=== PATIENT | female | born 1945 | race Caucasian/White ===

== ENCOUNTER 2023-11-02 09:01 | Observation (INO) | payer OTHER ==
[2023-11-02 10:13] LABS: BASO % 0.8 % (0-2.0); EOS % 4.3 % (0-4.5); HEMATOCRIT 44.3 % (32.4-45.2); HEMOGLOBIN 14.6 GM/dL (10.7-15.3); LYMPH % 11.2 % (8-40); MCH 29.5 pg (25.7-33.7); MCHC 33.1 g/dl (32.0-36.0); MEAN CELL VOLUME 89.1 fl (80-96); MEAN PLT VOLUME 8.3 fl (7.5-11.1); NEUT % 78.7 % (42.8-82.8); PLATELET COUNT 487 10^3/uL (134-434); RBC 4.97 M/mm3 (3.60-5.2); RDW 15.2 % (11.6-15.6); WHITE BLOOD COUNT 9.4 K/mm3 (4.0-10.0)
[2023-11-02 10:19] LABS: INR 1.02 (0.83-1.09); PROTHROMBIN TIME (PATIENT) 11.8 SEC (9.7-13.0)
[2023-11-02 10:21] LABS: EPI CELLS 14 /uL (0-25.1); HYALINE CASTS 0 /uL (0-3.1); URINE APPEARANCE CLEAR; URINE BACTERIA 283 /uL (0-1359); URINE BILIRUBIN NEGATIVE (NEGATIVE); URINE COLOR YELLOW; URINE GLUCOSE (UA) NEGATIVE (NEGATIVE); URINE KETONE NEGATIVE (NEGATIVE); URINE LEUK ESTERASE TRACE (NEGATIVE); URINE NITRITE NEGATIVE (NEGATIVE); URINE PROTEIN 2+ (NEGATIVE); URINE UROBILINOGEN 0.2 mg/dL (0.2-1.0); URINE WBC 9 /uL (0-25.8)
[2023-11-02 10:22] LABS: ACTIVATED PTT 33.1 SECONDS (25.2-36.5)
[2023-11-02 10:31] LABS: POTASSIUM 4.7 mmol/L (3.5-5.1)
[2023-11-02 10:33] LABS: ALBUMIN 3.4 g/dl (3.4-5.0); BLOOD UREA NITROGEN 28.3 mg/dL (7-18); CALCIUM 8.7 mg/dL (8.5-10.1)
[2023-11-02 10:39] LABS: BILIRUBIN,TOTAL 0.5 mg/dL (0.2-1); TOT PROT 6.8 g/dl (6.4-8.2)
[2023-11-02] MEDS: SODIUM CHLORIDE 500 ML IV STA (10:56)
[2023-11-02 11:19] LABS: URINE RBC 57.9 /uL (0-23.9)
[2023-11-02] MEDS ORDERED: DIPHTH,PERTUSS(ACELL),TET 0.5 ML DISP.SYRIN IM ONE (13:49)
[2023-11-02] MEDS: DIPHTH,PERTUSS(ACELL),TET 0.5 ML DISP.SYRIN IM ONE (13:56)
[2023-11-02] MEDS ORDERED: HEPARIN NA (PORCINE) 5,000 UNITS/ML 1ML VIAL ONE (14:33)
[2023-11-02] MEDS: HEPARIN NA (PORCINE) 5,000 UNITS/ML 1ML VIAL SQ SCH (14:40)
[2023-11-02] MEDS ORDERED: KETOROLAC TROMETHAMINE 0.5% EYE DROP 1 DROP DROPS OU SCH (16:15)
[2023-11-02] MEDS ORDERED: NICOTINE 21 MG/24 HOURS TOPICAL PATCH ONE (16:23)
[2023-11-02] MEDS ORDERED: hydrALAZINE HCL 20 MG/ML VIAL ONE (16:23)
[2023-11-02] MEDS: hydrALAZINE HCL 20 MG/ML VIAL IVPUSH ONE (16:34)
[2023-11-02] MEDS: NICOTINE 21 MG/24 HOURS TOPICAL PATCH TD SCH (16:34)
[2023-11-02 17:43] VITALS: RESP 18
[2023-11-02] MEDS: amLODIPine BESYLATE 10 MG TABLET (FP) PO SCH (20:30)
[2023-11-02] MEDS: ACETAMINOPHEN 1000 MG/100 ML BAG IVPB ONE (23:38)
[2023-11-03 00:47] VITALS: BMI 19.3
[2023-11-03 07:22] LABS: BASO % 1.4 % (0-2.0); EOS % 2.9 % (0-4.5); HEMATOCRIT 42.7 % (32.4-45.2); MCH 28.8 pg (25.7-33.7); MCHC 32.8 g/dl (32.0-36.0); MEAN PLT VOLUME 8.1 fl (7.5-11.1); MONO % 5.6 % (3.8-10.2); NEUT % 77.1 % (42.8-82.8); PLATELET COUNT 482 10^3/uL (134-434); RBC 4.85 M/mm3 (3.60-5.2); RDW 14.9 % (11.6-15.6); WHITE BLOOD COUNT 10.3 K/mm3 (4.0-10.0)
[2023-11-03 07:31] LABS: POTASSIUM 4.2 mmol/L (3.5-5.1)
[2023-11-03 07:37] LABS: BLOOD UREA NITROGEN 27.6 mg/dL (7-18); CALCIUM 8.7 mg/dL (8.5-10.1)
[2023-11-03 07:38] LABS: MAGNESIUM 1.9 mg/dL (1.8-2.4)
[2023-11-03 07:41] LABS: BILIRUBIN,TOTAL 0.5 mg/dL (0.2-1); CREATININE 1.8 mg/dL (0.55-1.3); PHOSPHOROUS 3.6 mg/dL (2.5-4.9); TOT PROT 6.3 g/dl (6.4-8.2)
[2023-11-03] MEDS: SODIUM CHLORIDE 0.45% 1,000 ML IV SCH (08:06)
[2023-11-03] MEDS: CLOPIDOGREL BISULFATE 75 MG TABLET (FP) PO SCH (09:13)
[2023-11-03] MEDS: ACETAMINOPHEN 1000 MG/100 ML BAG IVPB PRN (14:45)
[2023-11-03] MEDS: INSULIN ASPART SLIDING SCALE (NOVOLOG) 1 VIAL SQ SCH (16:37)
[2023-11-03] MEDS ORDERED: prednisoLONE ACETATE 1% OPHTH SUSP 5 ML BOTTLE OD SCH (17:54)
[2023-11-03] MEDS: KETOROLAC TROMETHAMINE 0.5% EYE DROP 1 DROP DROPS OP SCH (18:08)
[2023-11-03] MEDS: MOXIFLOXACIN HCL 0.5% OPHTHALMIC 3 ML BOTTLE OD SCH ×2 (18:08→21:43)
[2023-11-03] MEDS: prednisoLONE ACETATE 1% OPHTH SUSP 5 ML BOTTLE OD SCH ×2 (18:08→21:40)
[2023-11-03] MEDS: KETOROLAC TROMETHAMINE 0.5% EYE DROP 1 DROP DROPS OD SCH (21:42)
[2023-11-03] MEDS ORDERED: KETOROLAC TROMETHAMINE 0.5% EYE DROP 1 DROP DROPS OP SCH (22:00)
[2023-11-04 07:21] LABS: BASO % 1.2 % (0-2.0); EOS % 4.2 % (0-4.5); HEMATOCRIT 42.6 % (32.4-45.2); MCH 28.6 pg (25.7-33.7); MCHC 32.8 g/dl (32.0-36.0); MEAN CELL VOLUME 87.3 fl (80-96); MONO % 6.4 % (3.8-10.2); NEUT % 75.2 % (42.8-82.8); PLATELET COUNT 466 10^3/uL (134-434); RBC 4.88 M/mm3 (3.60-5.2); RDW 14.8 % (11.6-15.6); WHITE BLOOD COUNT 9.8 K/mm3 (4.0-10.0)
[2023-11-04 07:28] LABS: ALBUMIN 3.2 g/dl (3.4-5.0); BLOOD UREA NITROGEN 25.9 mg/dL (7-18); CALCIUM 8.7 mg/dL (8.5-10.1)
[2023-11-04 07:31] LABS: CREATININE 1.8 mg/dL (0.55-1.3); PHOSPHOROUS 3.7 mg/dL (2.5-4.9)
[2023-11-04 07:33] LABS: BILIRUBIN,TOTAL 0.5 mg/dL (0.2-1); TOT PROT 6.5 g/dl (6.4-8.2)
[2023-11-04] MEDS: hydrALAZINE HCL 25 MG TABLET (FP) PO SCH ×2 (14:28→21:07)
[2023-11-05 07:03] LABS: BASO % 2.5 % (0-2.0); EOS % 4.2 % (0-4.5); HEMATOCRIT 42.6 % (32.4-45.2); LYMPH % 12.3 % (8-40); MCH 28.7 pg (25.7-33.7); MCHC 32.8 g/dl (32.0-36.0); MEAN CELL VOLUME 87.6 fl (80-96); PLATELET COUNT 513 10^3/uL (134-434); RBC 4.87 M/mm3 (3.60-5.2); RDW 14.8 % (11.6-15.6); WHITE BLOOD COUNT 10.5 K/mm3 (4.0-10.0)
[2023-11-05 07:16] LABS: POTASSIUM 4.3 mmol/L (3.5-5.1)
[2023-11-05 07:22] LABS: ALBUMIN 3.2 g/dl (3.4-5.0); CALCIUM 8.6 mg/dL (8.5-10.1)
[2023-11-05 07:23] LABS: MAGNESIUM 2.1 mg/dL (1.8-2.4)
[2023-11-05 07:26] LABS: CREATININE 1.9 mg/dL (0.55-1.3); PHOSPHOROUS 4.2 mg/dL (2.5-4.9)
[2023-11-05 07:27] LABS: BILIRUBIN,TOTAL 0.4 mg/dL (0.2-1); TOT PROT 6.4 g/dl (6.4-8.2)
[2023-11-05 09:00] VITALS: BP 137/56; PULSE 69; TEMP 97
[2023-11-05] MEDS: prednisoLONE ACETATE 1% OPHTH SUSP 5 ML BOTTLE OU SCH (12:00)
[2023-11-05] MEDS: MOXIFLOXACIN HCL 0.5% OPHTHALMIC 3 ML BOTTLE OD SCH (12:05)
[2023-11-05] MEDS ORDERED: KETOROLAC TROMETHAMINE 0.5% EYE DROP 1 DROP DROPS OD SCH (20:00)
== END 2023-11-05 15:56 | disposition home or self-care (01) ==
LOC: JER 09:01 → JERBED 13:15 → J4W 18:14
PROVIDERS: ADMIT Internal Medicine; ATTEND Internal Medicine
PROC: 3E033NZ Introduction of Analgesics, Hypnotics, Sedatives into Peripheral Vein, Percutaneous Approach (ICD-10-PCS; principal; 2023-11-02)
PROC: 3E0234Z Introduction of Serum, Toxoid and Vaccine into Muscle, Percutaneous Approach (ICD-10-PCS; 2023-11-02)
PROC: 3E023GC Introduction of Other Therapeutic Substance into Muscle, Percutaneous Approach (ICD-10-PCS; 2023-11-02)
PROC: 3E033GC Introduction of Other Therapeutic Substance into Peripheral Vein, Percutaneous Approach (ICD-10-PCS; 2023-11-02)
PROC: 3E0337Z Introduction of Electrolytic and Water Balance Substance into Peripheral Vein, Percutaneous Approach (ICD-10-PCS; 2023-11-02)
DX: I16.1 Hypertensive emergency (principal); N17.9 Acute kidney failure, unspecified; W18.39XA Other fall on same level, initial encounter; Y93.89 Activity, other specified; Y92.003 Bedroom of unspecified non-institutional (private) residence as the place of occurrence of the external cause; R77.8 Other specified abnormalities of plasma proteins; S00.83XA Contusion of other part of head, initial encounter; R22.0 Localized swelling, mass and lump, head; E11.9 Type 2 diabetes mellitus without complications; H35.30 Unspecified macular degeneration; Z98.49 Cataract extraction status, unspecified eye; Z87.891 Personal history of nicotine dependence; J30.1 Allergic rhinitis due to pollen; Z23 Encounter for immunization
CPT/HCPCS: 0241U-QW; 36415; 70450-TC; 70486-TC; 71045-TC-FY; 72125-TC; 73110-TC-RT-FY; 73130-TC-RT-FY; 73562-TC-RT-FY; 73630-TC-RT-FY; 76775-TC; 80053; 81003; 82436; 82550; 82570; 82607; 82962; 83036; 83735; 84100; 84133; 84156; 84300; 84443; 84484; 85025; 85610; 85730; 87086; 90471; 90715; 93005; 93010; 96361; 96372; 96374; 96375; 96376; 97116-GP; 97162-GP; 99285-25; G0378; J0131; J1644

== ENCOUNTER 2024-05-31 23:03 | Inpatient (IN) | payer OTHER ==
[2024-06-01 00:47] LABS: HEMATOCRIT 44.9 % (32.4-45.2); HEMOGLOBIN 14.7 GM/dL (10.7-15.3); MCH 27.6 pg (25.7-33.7); MCHC 32.8 g/dl (32.0-36.0); MEAN CELL VOLUME 84.2 fl (80-96); MEAN PLT VOLUME 7.3 fl (7.5-11.1); PLATELET COUNT 845 10^3/uL (134-434); RBC 5.34 M/mm3 (3.60-5.2); RDW 14.6 % (11.6-15.6)
[2024-06-01 00:49] LABS: WHITE BLOOD COUNT 32.3 K/mm3 (4.0-10.0)
[2024-06-01 00:53] LABS: VENOUS BASE EXCESS -0.4 mmol/L (-2-2); VENOUS O2 SATURATION 85.8 % (70-80); VENOUS PCO2 52.8 mmHg (38-52); VENOUS PH 7.322 (7.310-7.410)
[2024-06-01] MEDS ORDERED: CEFTRIAXONE 1 GM/50 ML BAG ONE (01:01)
[2024-06-01 01:06] LABS: POTASSIUM 4.9 mmol/L (3.5-5.1)
[2024-06-01] MEDS: CEFTRIAXONE 1,000 MG in DEXTROSE 5%-WATER - 50 ML IVPB ONE (01:07)
[2024-06-01 01:08] LABS: ALBUMIN 2.7 g/dl (3.4-5.0); CALCIUM 9.4 mg/dL (8.5-10.1)
[2024-06-01 01:11] LABS: CREATININE 1.7 mg/dL (0.55-1.3)
[2024-06-01 01:13] LABS: BILIRUBIN,TOTAL 0.5 mg/dL (0.2-1); TOT PROT 7.4 g/dl (6.4-8.2)
[2024-06-01] MEDS ORDERED: ACETAMINOPHEN INJECTION 100 ML ONE (01:20)
[2024-06-01] MEDS: ACETAMINOPHEN 1000 MG/100 ML BAG IVPB ONE (01:31)
[2024-06-01] MEDS ORDERED: AZITHROMYCIN IVPB 500 MG/250 ML BAG IVPB ONE (01:49)
[2024-06-01] MEDS: AZITHROMYCIN IVPB 500 MG in DEXTROSE 5%-WATER - 250 ML IVPB ONE (01:57)
[2024-06-01 03:42] LABS: ANISOCYTOSIS 0; MACROCYTOSIS 0
[2024-06-01 04:07] LABS: INR 1.24 (0.83-1.09); PROTHROMBIN TIME (PATIENT) 14.2 SEC (9.7-13.0)
[2024-06-01] MEDS ORDERED: ACETAMINOPHEN 1000 MG/100 ML BAG IVPB PRN (08:00)
[2024-06-01] MEDS: CLOPIDOGREL BISULFATE 75 MG TABLET (FP) PO SCH (10:33)
[2024-06-01] MEDS: amLODIPine BESYLATE 10 MG TABLET (FP) PO SCH (10:34)
[2024-06-01] MEDS: AZITHROMYCIN IVPB 500 MG/250 ML BAG IVPB SCH (10:34)
[2024-06-01 11:26] VITALS: BMI 25.0
[2024-06-01 11:36] LABS: EPI CELLS 12 /uL (0-25.1); HYALINE CASTS 1 /uL (0-3.1); PH,URINE 5.5 (5.0-8.0); URINE APPEARANCE CLOUDY; URINE BACTERIA 64 /uL (0-1359); URINE BILIRUBIN NEGATIVE (NEGATIVE); URINE COLOR YELLOW; URINE GLUCOSE (UA) NEGATIVE (NEGATIVE); URINE KETONE NEGATIVE (NEGATIVE); URINE LEUK ESTERASE TRACE (NEGATIVE); URINE NITRITE NEGATIVE (NEGATIVE); URINE PROTEIN 2+ (NEGATIVE); URINE RBC 27 /uL (0-23.9); URINE UROBILINOGEN 0.2 mg/dL (0.2-1.0); URINE WBC 28 /uL (0-25.8)
[2024-06-01 12:21] LABS: URINE CRYSTALS NONE SEEN /hpf
[2024-06-01] MEDS: methylPREDNISolone NA SUCC 40 MG/1 ML VIAL IVPUSH SCH (13:18)
[2024-06-02 08:40] LABS: HEMATOCRIT 46.9 % (32.4-45.2); MCH 27.3 pg (25.7-33.7); MCHC 31.9 g/dl (32.0-36.0); MEAN CELL VOLUME 85.6 fl (80-96); MEAN PLT VOLUME 7.8 fl (7.5-11.1); PLATELET COUNT 896 10^3/uL (134-434); RBC 5.48 M/mm3 (3.60-5.2); RDW 14.4 % (11.6-15.6)
[2024-06-02 08:45] LABS: WHITE BLOOD COUNT 31.9 K/mm3 (4.0-10.0)
[2024-06-02 09:06] LABS: POTASSIUM 5.6 mmol/L (3.5-5.1)
[2024-06-02 09:15] LABS: ALBUMIN 2.2 g/dl (3.4-5.0); BLOOD UREA NITROGEN 38.2 mg/dL (7-18)
[2024-06-02 09:18] LABS: CREATININE 1.6 mg/dL (0.55-1.3)
[2024-06-02 09:19] LABS: BILIRUBIN,TOTAL 0.3 mg/dL (0.2-1); TOT PROT 6.7 g/dl (6.4-8.2)
[2024-06-02] MEDS: CEFTRIAXONE 1 GM in DEXTROSE 5%-WATER - 50 ML IVPB SCH (10:08)
[2024-06-02] MEDS: SODIUM ZIRCONIUM CYCLOSILICATE (LOKELMA) 5 GM PACKET PO ONE (10:09)
[2024-06-02 10:14] LABS: PLATELET ESTIMATE INCREASED
[2024-06-02] MEDS ORDERED: ALBUTEROL SO4 0.083% IH SOL 2.5 MG/3 ML VIAL.NEB. NEB PRN (10:41)
[2024-06-02] MEDS: ALBUTEROL SO4 2.5/IPRATROPIUM 0.5 INH SOL 3 ML VIAL.NEB. NEB SCH (11:41)
[2024-06-02] MEDS: SODIUM CHLORIDE 0.45% 1,000 ML IV SCH (15:26)
[2024-06-03 10:15] LABS: HEMATOCRIT 42.3 % (32.4-45.2); HEMOGLOBIN 14.2 GM/dL (10.7-15.3); MCH 28.1 pg (25.7-33.7); MCHC 33.5 g/dl (32.0-36.0); MEAN CELL VOLUME 83.7 fl (80-96); MEAN PLT VOLUME 7.5 fl (7.5-11.1); PLATELET COUNT 818 10^3/uL (134-434); RBC 5.05 M/mm3 (3.60-5.2); RDW 14.1 % (11.6-15.6); WHITE BLOOD COUNT 28.3 K/mm3 (4.0-10.0)
[2024-06-03 10:24] LABS: POTASSIUM 4.8 mmol/L (3.5-5.1)
[2024-06-03 10:27] LABS: CALCIUM 8.8 mg/dL (8.5-10.1)
[2024-06-03 10:28] LABS: ALBUMIN 2.2 g/dl (3.4-5.0); BLOOD UREA NITROGEN 45.1 mg/dL (7-18)
[2024-06-03 10:31] LABS: CREATININE 1.5 mg/dL (0.55-1.3)
[2024-06-03 10:32] LABS: BILIRUBIN,TOTAL 0.4 mg/dL (0.2-1)
[2024-06-03 10:33] LABS: TOT PROT 6.6 g/dl (6.4-8.2)
[2024-06-03 10:54] LABS: ANISOCYTOSIS 0; HELMET CELLS 0; HOWELL-JOLLY BODIES 0; MACROCYTOSIS 0; OVALOCYTE 0; ROULEAU 0; SICKELED CELLS 0; TARGET CELLS 0; TEAR DROP CELLS 0; TOXIC GRANULATION 0
[2024-06-04 08:49] LABS: HEMATOCRIT 44.6 % (32.4-45.2); HEMOGLOBIN 14.7 GM/dL (10.7-15.3); MCH 27.6 pg (25.7-33.7); MCHC 32.9 g/dl (32.0-36.0); MEAN PLT VOLUME 7.4 fl (7.5-11.1); PLATELET COUNT 728 10^3/uL (134-434); RBC 5.31 M/mm3 (3.60-5.2); RDW 14.3 % (11.6-15.6); WHITE BLOOD COUNT 25.3 K/mm3 (4.0-10.0)
[2024-06-04 09:07] LABS: POTASSIUM 4.9 mmol/L (3.5-5.1)
[2024-06-04 09:16] LABS: ALBUMIN 2.3 g/dl (3.4-5.0); CALCIUM 8.9 mg/dL (8.5-10.1)
[2024-06-04 09:17] LABS: BLOOD UREA NITROGEN 41.3 mg/dL (7-18)
[2024-06-04 09:20] LABS: CREATININE 1.3 mg/dL (0.55-1.3)
[2024-06-04 09:21] LABS: BILIRUBIN,TOTAL 0.2 mg/dL (0.2-1); TOT PROT 6.7 g/dl (6.4-8.2)
[2024-06-04 12:03] LABS: ANISOCYTOSIS 0; MACROCYTOSIS 0
[2024-06-04 12:05] LABS: PLATELET ESTIMATE INCREASED
[2024-06-04 13:52] LABS: BF WBC & OTHER NUCLEATED CELLS 1306 /mm3
[2024-06-04 13:53] LABS: BODY FLUID MONOCYTE 7 %
[2024-06-04] MEDS: ACETAMINOPHEN 500 MG TABLET (FP) PO SCH (18:00)
[2024-06-06 10:07] LABS: HEMATOCRIT 50.5 % (32.4-45.2); HEMOGLOBIN 16.1 GM/dL (10.7-15.3); MCHC 31.9 g/dl (32.0-36.0); MEAN CELL VOLUME 84.6 fl (80-96); MEAN PLT VOLUME 7.2 fl (7.5-11.1); PLATELET COUNT 675 10^3/uL (134-434); RBC 5.97 M/mm3 (3.60-5.2); RDW 14.4 % (11.6-15.6); WHITE BLOOD COUNT 25.2 K/mm3 (4.0-10.0)
[2024-06-06 10:41] LABS: POTASSIUM 5.3 mmol/L (3.5-5.1)
[2024-06-06 10:43] LABS: CALCIUM 9.2 mg/dL (8.5-10.1)
[2024-06-06 10:45] LABS: ALBUMIN 2.5 g/dl (3.4-5.0); BLOOD UREA NITROGEN 41.8 mg/dL (7-18)
[2024-06-06 10:47] LABS: CREATININE 1.3 mg/dL (0.55-1.3)
[2024-06-06 10:48] LABS: BILIRUBIN,TOTAL 0.2 mg/dL (0.2-1)
[2024-06-06 11:09] LABS: ANISOCYTOSIS 0; MACROCYTOSIS 0
[2024-06-06] MEDS: SODIUM ZIRCONIUM CYCLOSILICATE (LOKELMA) 5 GM PACKET PO SCH (18:09)
[2024-06-06] MEDS: POLYETHYLENE GLYCOL (HEALTHYLAX) 3350 17 GM PACKET PO SCH (21:54)
[2024-06-07] MEDS: CEFTRIAXONE 1 GM in DEXTROSE 5%-WATER - 50 ML IVPB ONE (13:36)
[2024-06-07] MEDS: SENNOSIDES 8.6MG TABLET (FP) PO SCH (13:36)
[2024-06-07] MEDS: CEFTRIAXONE 2 GM in DEXTROSE 5%-WATER 100 ML IVPB SCH (13:53)
[2024-06-07] MEDS: INSULIN ASPART SLIDING SCALE (NOVOLOG) 1 VIAL SQ SCH ×2 (17:30→18:26)
[2024-06-08 09:30] LABS: HEMATOCRIT 45.7 % (32.4-45.2); HEMOGLOBIN 14.8 GM/dL (10.7-15.3); MCH 27.8 pg (25.7-33.7); MCHC 32.3 g/dl (32.0-36.0); MEAN CELL VOLUME 86.1 fl (80-96); MEAN PLT VOLUME 7.9 fl (7.5-11.1); PLATELET COUNT 553 10^3/uL (134-434); RBC 5.31 M/mm3 (3.60-5.2); RDW 14.5 % (11.6-15.6); WHITE BLOOD COUNT 27.7 K/mm3 (4.0-10.0)
[2024-06-08 09:38] LABS: POTASSIUM 4.9 mmol/L (3.5-5.1)
[2024-06-08] MEDS: CEFTRIAXONE 2 GM in DEXTROSE 5%-WATER 100 ML IVPB SCH (10:04)
[2024-06-08 10:45] LABS: ALBUMIN 2.6 g/dl (3.4-5.0); BLOOD UREA NITROGEN 42.8 mg/dL (7-18)
[2024-06-08 10:47] LABS: ANISOCYTOSIS 0; HELMET CELLS 0; HOWELL-JOLLY BODIES 0; MACROCYTOSIS 0; OVALOCYTE 0; ROULEAU 0; SICKELED CELLS 0; TARGET CELLS 0; TEAR DROP CELLS 0; TOXIC GRANULATION 0
[2024-06-08 10:48] LABS: CREATININE 1.3 mg/dL (0.55-1.3); PLATELET ESTIMATE INCREASED
[2024-06-08 10:50] LABS: BILIRUBIN,TOTAL 0.2 mg/dL (0.2-1); TOT PROT 6.7 g/dl (6.4-8.2)
[2024-06-10 09:15] LABS: HEMATOCRIT 43.8 % (32.4-45.2); HEMOGLOBIN 13.7 GM/dL (10.7-15.3); MCH 26.9 pg (25.7-33.7); MCHC 31.4 g/dl (32.0-36.0); MEAN CELL VOLUME 85.8 fl (80-96); MEAN PLT VOLUME 8.1 fl (7.5-11.1); PLATELET COUNT 520 10^3/uL (134-434); RDW 14.1 % (11.6-15.6); WHITE BLOOD COUNT 23.2 K/mm3 (4.0-10.0)
[2024-06-10 09:40] LABS: CALCIUM 8.9 mg/dL (8.5-10.1)
[2024-06-10 09:41] LABS: ALBUMIN 2.5 g/dl (3.4-5.0); BLOOD UREA NITROGEN 41.8 mg/dL (7-18)
[2024-06-10 09:45] LABS: CREATININE 1.3 mg/dL (0.55-1.3)
[2024-06-10 09:46] LABS: BILIRUBIN,TOTAL 0.2 mg/dL (0.2-1); TOT PROT 6.3 g/dl (6.4-8.2)
[2024-06-13 10:41] LABS: CALCIUM 8.5 mg/dL (8.5-10.1)
[2024-06-13 10:42] LABS: ALBUMIN 2.6 g/dl (3.4-5.0); BLOOD UREA NITROGEN 29.7 mg/dL (7-18)
[2024-06-13 10:45] LABS: CREATININE 1.2 mg/dL (0.55-1.3)
[2024-06-13 10:46] LABS: BILIRUBIN,TOTAL 0.3 mg/dL (0.2-1); TOT PROT 6.3 g/dl (6.4-8.2)
[2024-06-14] MEDS: LOPERAMIDE HCL 2 MG CAPSULE PO ONE (15:17)
[2024-06-14] MEDS: BANATROL PLUS POWDER PACKET PO SCH (15:17)
[2024-06-14] MEDS: PRAMIPEXOLE DIHYDROCHLORIDE 0.125 MG TABLET PO SCH (21:21)
[2024-06-15] MEDS: LOPERAMIDE HCL 2 MG CAPSULE PO PRN (09:23)
[2024-06-15 14:23] VITALS: BP 153/66; PULSE 88; RESP 20; TEMP 97.5
== END 2024-06-15 14:05 | DRG 193 ==
LOC: JER 23:03 → JERBED 06-01 03:37 → J6S 06-01 07:48
PROVIDERS: ADMIT Family Medicine; ATTEND Family Medicine
PROC: 0W9B3ZZ Drainage of Left Pleural Cavity, Percutaneous Approach (ICD-10-PCS; principal; 2024-06-04)
PROC: 0W9B3ZZ Drainage of Left Pleural Cavity, Percutaneous Approach (ICD-10-PCS; 2024-06-11)
DX: J18.9 Pneumonia, unspecified organism (principal); J96.01 Acute respiratory failure with hypoxia; J44.0 Chronic obstructive pulmonary disease with (acute) lower respiratory infection; J44.1 Chronic obstructive pulmonary disease with (acute) exacerbation; E87.1 Hypo-osmolality and hyponatremia; N17.9 Acute kidney failure, unspecified; J91.8 Pleural effusion in other conditions classified elsewhere; I10 Essential (primary) hypertension; E11.9 Type 2 diabetes mellitus without complications; H35.30 Unspecified macular degeneration; R80.9 Proteinuria, unspecified; E87.5 Hyperkalemia
CPT/HCPCS: 0241U-QW; 32555; 36415; 71045-TC-FY; 71250-TC; 74176-TC; 76942; 80048; 80053; 81003; 82042; 82150; 82465; 82803; 82945; 82962; 83605; 83615; 83690; 83986; 84132; 84157; 84478; 84484; 85025; 85027; 85610; 85730; 86850; 86900; 86901; 87040; 87070; 87075; 87086; 87102; 87116; 87205; 87206; 87210; 87635; 87899; 88108; 88305-TC; 93005; 93010; 94640; 94761; 97116-GP; 97162-GP; 99285-25; J0131

== ENCOUNTER 2024-09-09 10:53 | Inpatient (IN) | payer OTHER ==
[2024-09-09 10:58] VITALS: BMI 16.9
[2024-09-09 12:29] LABS: HEMATOCRIT 49.9 % (32.4-45.2); MCH 27.5 pg (25.7-33.7); MCHC 32.1 g/dl (32.0-36.0); MEAN CELL VOLUME 85.7 fl (80-96); MEAN PLT VOLUME 7.7 fl (7.5-11.1); PLATELET COUNT 596 10^3/uL (134-434); RBC 5.82 M/mm3 (3.60-5.2); RDW 16.4 % (11.6-15.6); WHITE BLOOD COUNT 11.1 K/mm3 (4.0-10.0)
[2024-09-09 12:49] LABS: POTASSIUM 5.6 mmol/L (3.5-5.1)
[2024-09-09 12:50] LABS: CALCIUM 9.4 mg/dL (8.5-10.1)
[2024-09-09 12:51] LABS: ALBUMIN 3.5 g/dl (3.4-5.0); BLOOD UREA NITROGEN 30.5 mg/dL (7-18)
[2024-09-09 12:54] LABS: CREATININE 1.7 mg/dL (0.55-1.3)
[2024-09-09 12:56] LABS: BILIRUBIN,TOTAL 0.4 mg/dL (0.2-1); TOT PROT 7.4 g/dl (6.4-8.2)
[2024-09-09] MEDS: SODIUM CHLORIDE 500 ML IV STA (13:13)
[2024-09-09] MEDS ORDERED: ACETAMINOPHEN INJECTION 100 ML ONE (13:28)
[2024-09-09] MEDS: ACETAMINOPHEN 1000 MG/100 ML BAG IVPB ONE (13:34)
[2024-09-09] MEDS ORDERED: ACETAMINOPHEN 325 MG TABLET (FP) PO PRN (16:12)
[2024-09-09] MEDS ORDERED: HYDROmorphone HCl 2 MG/ML VIAL IVPB PRN (16:16)
[2024-09-09] MEDS ORDERED: LACTATED RINGERS SOLUTION 1,000 ML/1,000 ML INFUS.BAG IV SCH (16:30)
[2024-09-09] MEDS: oxyCODONE HCL 5 MG TABLET PO PRN (20:19)
[2024-09-09] MEDS: INSULIN ASPART SLIDING SCALE (NOVOLOG) 1 VIAL SQ SCH (21:31)
[2024-09-09] MEDS: HEPARIN NA (PORCINE) 5,000 UNITS/ML 1ML VIAL SQ SCH (21:32)
[2024-09-09] MEDS: SODIUM ZIRCONIUM CYCLOSILICATE (LOKELMA) 5 GM PACKET PO SCH ×3 (21:37→21:53)
[2024-09-09] MEDS: SODIUM CHLORIDE 1,000 ML IV SCH (21:53)
[2024-09-10] MEDS: SODIUM CHLORIDE 1,000 ML IV SCH (00:34)
[2024-09-10] MEDS: HYDROmorphone HCL CARPU-JECT 2 MG/1 ML DISP.SYRIN IVPB PRN (04:45)
[2024-09-10] MEDS: amLODIPine BESYLATE 10 MG TABLET (FP) PO SCH (05:57)
[2024-09-10 08:55] LABS: HEMATOCRIT 52.4 % (32.4-45.2); HEMOGLOBIN 16.5 GM/dL (10.7-15.3); MCH 27.4 pg (25.7-33.7); MCHC 31.5 g/dl (32.0-36.0); MEAN CELL VOLUME 87.1 fl (80-96); MEAN PLT VOLUME 8.1 fl (7.5-11.1); PLATELET COUNT 655 10^3/uL (134-434); RBC 6.02 M/mm3 (3.60-5.2); RDW 16.1 % (11.6-15.6); WHITE BLOOD COUNT 10.6 K/mm3 (4.0-10.0)
[2024-09-10 08:56] LABS: INR 1.02 (0.83-1.09); PROTHROMBIN TIME (PATIENT) 11.5 SEC (9.7-13.0)
[2024-09-10] MEDS: CLOPIDOGREL BISULFATE 75 MG TABLET (FP) PO SCH (09:13)
[2024-09-10] MEDS: GABAPENTIN 300 MG CAPSULE PO SCH (09:14)
[2024-09-10] MEDS: SODIUM CHLORIDE 0.45% 1,000 ML IV SCH ×2 (09:24→14:02)
[2024-09-10 09:28] LABS: POTASSIUM 4.6 mmol/L (3.5-5.1)
[2024-09-10 09:30] LABS: BLOOD UREA NITROGEN 24.2 mg/dL (7-18)
[2024-09-10 09:33] LABS: CREATININE 1.6 mg/dL (0.55-1.3)
[2024-09-10] MEDS ORDERED: amLODIPine BESYLATE 10 MG TABLET (FP) PO SCH (10:00)
[2024-09-10] MEDS ORDERED: PRAMIPEXOLE DIHYDROCHLORIDE 0.125 MG TABLET PO SCH (10:00)
[2024-09-10] MEDS ORDERED: ONDANSETRON 4 MG/2 ML VIAL IVPUSH PRN ×2 (11:13→13:49)
[2024-09-10] MEDS ORDERED: PROPOFOL 20 ML ONE (11:32)
[2024-09-10] MEDS ORDERED: ONDANSETRON 4 MG/2 ML VIAL ONE (11:37)
[2024-09-10] MEDS ORDERED: LIDOCAINE HCL/PF 2% SDV 5ML VIAL ONE (11:37)
[2024-09-10] MEDS ORDERED: ceFAZolin SODIUM 1 GM VIAL ONE (11:50)
[2024-09-10] MEDS: ceFAZolin SODIUM 1 GM VIAL IVPB ONE (12:00)
[2024-09-10] MEDS: ALBUTEROL SO4 2.5/IPRATROPIUM 0.5 INH SOL 3 ML VIAL.NEB. NEB SCH ×2 (12:00→16:49)
[2024-09-10] MEDS: LIDOCAINE HCL 1%, 10 MG/ML (20ML VIAL) INF ONE (12:07)
[2024-09-10] MEDS ORDERED: HEPARIN NA (PORCINE) 5,000 UNITS/ML 1ML VIAL ONE (12:17)
[2024-09-10] MEDS ORDERED: PROTAMINE SULFATE 50 MG/5 ML VIAL ONE (12:52)
[2024-09-10] MEDS ORDERED: HYDROmorphone HCL CARPU-JECT 2 MG/1 ML DISP.SYRIN IVPB PRN (13:49)
[2024-09-10] MEDS ORDERED: ACETAMINOPHEN 325 MG TABLET (FP) PO PRN (13:49)
[2024-09-10] MEDS: INSULIN ASPART SLIDING SCALE (NOVOLOG) 1 VIAL SQ SCH (17:30)
[2024-09-10 18:50] VITALS: RESP 18
[2024-09-10] MEDS: oxyCODONE HCL 5 MG TABLET PO PRN (21:27)
[2024-09-10] MEDS: PRAMIPEXOLE DIHYDROCHLORIDE 0.25 MG TABLET PO SCH (21:29)
[2024-09-10] MEDS: HEPARIN NA (PORCINE) 5,000 UNITS/ML 1ML VIAL SQ SCH (21:29)
[2024-09-10] MEDS ORDERED: PRAMIPEXOLE DIHYDROCHLORIDE 0.25 MG TABLET PO SCH (22:00)
[2024-09-11] MEDS ORDERED: ALBUTEROL SO4 2.5/IPRATROPIUM 0.5 INH SOL 3 ML VIAL.NEB. NEB ONE (00:21)
[2024-09-11] MEDS: LACTATED RINGERS SOLUTION 1,000 ML IV SCH (01:59)
[2024-09-11] MEDS: amLODIPine BESYLATE 10 MG TABLET (FP) PO SCH (09:20)
[2024-09-11] MEDS: CLOPIDOGREL BISULFATE 75 MG TABLET (FP) PO SCH (09:20)
[2024-09-11] MEDS: SODIUM ZIRCONIUM CYCLOSILICATE (LOKELMA) 5 GM PACKET PO SCH (09:21)
[2024-09-11] MEDS: GABAPENTIN 300 MG CAPSULE PO SCH (09:36)
[2024-09-11 10:08] LABS: POTASSIUM 4.5 mmol/L (3.5-5.1)
[2024-09-11 10:11] LABS: CALCIUM 8.5 mg/dL (8.5-10.1)
[2024-09-11 10:12] LABS: BLOOD UREA NITROGEN 19.5 mg/dL (7-18)
[2024-09-11 10:15] LABS: CREATININE 1.4 mg/dL (0.55-1.3)
[2024-09-11 14:09] VITALS: BP 152/62; PULSE 82; TEMP 98.1
== END 2024-09-11 17:04 | disposition home or self-care (01) | DRG 300 ==
LOC: JER 10:53 → JERBED 15:06 → J5S 19:04
PROVIDERS: ADMIT Surgery; ATTEND Surgery
PROC: B40DYZZ Plain Radiography of Aorta and Bilateral Lower Extremity Arteries using Other Contrast (ICD-10-PCS; 2024-09-10)
PROC: B400YZZ Plain Radiography of Abdominal Aorta using Other Contrast (ICD-10-PCS; principal; 2024-09-10 12:30)
DX: E11.52 Type 2 diabetes mellitus with diabetic peripheral angiopathy with gangrene (principal); I70.261 Atherosclerosis of native arteries of extremities with gangrene, right leg; N17.9 Acute kidney failure, unspecified; I12.9 Hypertensive chronic kidney disease with stage 1 through stage 4 chronic kidney disease, or unspecified chronic kidney disease; N18.9 Chronic kidney disease, unspecified; H35.30 Unspecified macular degeneration; J44.9 Chronic obstructive pulmonary disease, unspecified; I70.209 Unspecified atherosclerosis of native arteries of extremities, unspecified extremity
CPT/HCPCS: 36415; 71045-TC-FY; 76000-TC-FY; 80048; 80053; 82962; 85027; 85610; 86850; 86900; 86901; 93005; 93010; 93306-TC; 94640; 94760; 97116-GP; 97161-GP; 99285-25; C1769; G0463-25; J0131; J1644

== ENCOUNTER 2024-09-29 23:38 | Inpatient (IN) | payer OTHER ==
[2024-09-30] MEDS ORDERED: oxyCODONE HCL 5 MG TABLET ONE ×2 (00:17→10:32)
[2024-09-30] MEDS: oxyCODONE HCL 5 MG TABLET PO ONE (00:17)
[2024-09-30 02:10] LABS: HEMATOCRIT 50.8 % (32.4-45.2); HEMOGLOBIN 16.1 GM/dL (10.7-15.3); MCH 26.9 pg (25.7-33.7); MCHC 31.8 g/dl (32.0-36.0); MEAN CELL VOLUME 84.6 fl (80-96); MEAN PLT VOLUME 8.1 fl (7.5-11.1); PLATELET COUNT 373 10^3/uL (134-434); RDW 15.9 % (11.6-15.6)
[2024-09-30 02:26] LABS: INR 1.03 (0.83-1.09); PROTHROMBIN TIME (PATIENT) 11.8 SEC (9.7-13.0)
[2024-09-30 02:57] LABS: CHLORIDE 104 mmol/L (98-107); SODIUM 135 mmol/L (136-145)
[2024-09-30 02:59] LABS: CALCIUM 8.9 mg/dL (8.5-10.1)
[2024-09-30 03:00] LABS: ALBUMIN 3.1 g/dl (3.4-5.0); CO2 27 mmol/L (21-32); GLUCOSE,RANDOM 145 mg/dL (74-106)
[2024-09-30 03:03] LABS: CREATININE 1.7 mg/dL (0.55-1.3); SGOT/AST 64 U/L (15-37)
[2024-09-30 03:05] LABS: BILIRUBIN,TOTAL 0.4 mg/dL (0.2-1); TOT PROT 7.5 g/dl (6.4-8.2)
[2024-09-30 03:06] LABS: ALK PHOS 78 U/L (45-117)
[2024-09-30 03:16] LABS: ANION GAP 4 mmol/L (4-13); POTASSIUM 7.5 mmol/L (3.5-5.1); SGPT/ALT 18 U/L (13-61)
[2024-09-30 03:56] LABS: ANISOCYTOSIS 2+; MACROCYTOSIS 0
[2024-09-30 04:04] LABS: POTASSIUM 4.7 mmol/L (3.5-5.1)
[2024-09-30 04:05] LABS: CALCIUM 8.6 mg/dL (8.5-10.1); MAGNESIUM 2.2 mg/dL (1.8-2.4)
[2024-09-30 04:06] LABS: BLOOD UREA NITROGEN 39.7 mg/dL (7-18)
[2024-09-30 04:09] LABS: CREATININE 1.6 mg/dL (0.55-1.3); PHOSPHOROUS 3.2 mg/dL (2.5-4.9)
[2024-09-30] MEDS: SODIUM CHLORIDE 0.45% 1,000 ML IV SCH (06:37)
[2024-09-30 07:50] LABS: POTASSIUM 4.4 mmol/L (3.5-5.1)
[2024-09-30 07:51] LABS: CALCIUM 8.9 mg/dL (8.5-10.1)
[2024-09-30 07:52] LABS: BLOOD UREA NITROGEN 37.9 mg/dL (7-18)
[2024-09-30 07:55] LABS: CREATININE 1.6 mg/dL (0.55-1.3)
[2024-09-30] MEDS: amLODIPine BESYLATE 10 MG TABLET (FP) PO SCH (10:42)
[2024-09-30] MEDS: oxyCODONE HCL 5 MG TABLET PO PRN (10:42)
[2024-09-30] MEDS: PRAMIPEXOLE DIHYDROCHLORIDE 0.125 MG TABLET PO SCH (10:42)
[2024-09-30] MEDS: GABAPENTIN 300 MG CAPSULE PO SCH (10:42)
[2024-09-30] MEDS: INSULIN ASPART SLIDING SCALE (NOVOLOG) 1 VIAL SQ SCH ×2 (10:42→21:45)
[2024-09-30] MEDS: ACETAMINOPHEN 1000 MG/100 ML BAG IVPB ONE (11:00)
[2024-09-30] MEDS ORDERED: INSULIN ASPART SLIDING SCALE (NOVOLOG) 1 VIAL SQ ONE (11:55)
[2024-09-30] MEDS ORDERED: ACETAMINOPHEN 325 MG TABLET (FP) PO PRN (12:50)
[2024-09-30] MEDS ORDERED: PROPOFOL 20 ML ONE (16:23)
[2024-09-30] MEDS ORDERED: MIDAZOLAM HCL 2 MG/2 ML SINGLE DOSE VIAL ONE (16:23)
[2024-09-30] MEDS ORDERED: BUPIVACAINE HCL/PF 0.5% (5MG/ML) 10 ML VIAL ONE (16:53)
[2024-09-30] MEDS: ceFAZolin SODIUM 1 GM VIAL IVPB ONE (17:45)
[2024-09-30] MEDS ORDERED: ONDANSETRON 4 MG/2 ML VIAL IVPUSH PRN ×2 (18:37→19:04)
[2024-09-30] MEDS: LACTATED RINGERS SOLUTION 1,000 ML/1,000 ML INFUS.BAG IV SCH (21:44)
[2024-09-30] MEDS: DOCUSATE SODIUM 100 MG CAPSULE (FP) PO SCH (21:44)
[2024-09-30] MEDS: LACTATED RINGERS SOLUTION 1,000 ML IV SCH (22:24)
[2024-10-01] MEDS: oxyCODONE HCL 5 MG TABLET PO PRN (01:18)
[2024-10-01] MEDS: CEFAZOLIN 1 GM/D5W 1 GM/50 ML BAG IVPB SCH (01:40)
[2024-10-01 09:36] LABS: BASO % 0.5 % (0-2.0); EOS % 0.4 % (0-4.5); HEMATOCRIT 46.3 % (32.4-45.2); LYMPH % 4.5 % (8-40); MCHC 30.2 g/dl (32.0-36.0); MEAN PLT VOLUME 8.4 fl (7.5-11.1); MONO % 7.4 % (3.8-10.2); NEUT % 87.2 % (42.8-82.8); PLATELET COUNT 365 10^3/uL (134-434); RBC 5.38 M/mm3 (3.60-5.2); RDW 15.2 % (11.6-15.6); WHITE BLOOD COUNT 14.2 K/mm3 (4.0-10.0)
[2024-10-01] MEDS: CHOLECALCIFEROL (VIT D3) 1,000 UNIT (25 MCG) TABLET PO SCH (10:30)
[2024-10-01] MEDS: GABAPENTIN 300 MG CAPSULE PO SCH (10:30)
[2024-10-01] MEDS: amLODIPine BESYLATE 10 MG TABLET (FP) PO SCH (10:30)
[2024-10-01] MEDS: PRAMIPEXOLE DIHYDROCHLORIDE 0.125 MG TABLET PO SCH (15:33)
[2024-10-02 10:12] LABS: HEMATOCRIT 41.4 % (32.4-45.2); HEMOGLOBIN 13.1 GM/dL (10.7-15.3); MCH 27.1 pg (25.7-33.7); MCHC 31.6 g/dl (32.0-36.0); MEAN CELL VOLUME 85.7 fl (80-96); MEAN PLT VOLUME 8.3 fl (7.5-11.1); PLATELET COUNT 364 10^3/uL (134-434); RBC 4.84 M/mm3 (3.60-5.2); RDW 15.1 % (11.6-15.6); WHITE BLOOD COUNT 13.7 K/mm3 (4.0-10.0)
[2024-10-02] MEDS: ENOXAPARIN NA (PORCINE) 30 MG/0.3 ML DISP.SYRIN SQ SCH (10:38)
[2024-10-02 10:41] LABS: POTASSIUM 4.3 mmol/L (3.5-5.1)
[2024-10-02 10:49] LABS: CALCIUM 8.3 mg/dL (8.5-10.1)
[2024-10-02 10:52] LABS: CREATININE 1.3 mg/dL (0.55-1.3)
[2024-10-02] MEDS: ENOXAPARIN NA (PORCINE) 40 MG/0.4 ML DISP.SYRIN SQ SCH (13:32)
[2024-10-02] MEDS: CALCITONIN - SALMON SYNTHETIC 200 UNITS/SPRAY NS SCH (17:58)
[2024-10-02] MEDS: CALCIUM 500MG/VIT-D 200 UNITS COMBO TABLET (FP) PO SCH (22:35)
[2024-10-02] MEDS: ACETAMINOPHEN 325 MG TABLET (FP) PO PRN (22:35)
[2024-10-03 10:43] LABS: HEMATOCRIT 39.5 % (32.4-45.2); HEMOGLOBIN 12.5 GM/dL (10.7-15.3); MCH 26.9 pg (25.7-33.7); MCHC 31.7 g/dl (32.0-36.0); MEAN CELL VOLUME 84.8 fl (80-96); MEAN PLT VOLUME 8.4 fl (7.5-11.1); PLATELET COUNT 439 10^3/uL (134-434); RBC 4.66 M/mm3 (3.60-5.2); RDW 14.8 % (11.6-15.6); WHITE BLOOD COUNT 11.9 K/mm3 (4.0-10.0)
[2024-10-03 11:00] LABS: POTASSIUM 4.5 mmol/L (3.5-5.1)
[2024-10-03 11:08] LABS: BLOOD UREA NITROGEN 30.9 mg/dL (7-18); CALCIUM 8.7 mg/dL (8.5-10.1)
[2024-10-03 11:12] LABS: CREATININE 1.3 mg/dL (0.55-1.3)
[2024-10-04 09:27] LABS: HEMATOCRIT 41.1 % (32.4-45.2); HEMOGLOBIN 12.8 GM/dL (10.7-15.3); MCH 26.6 pg (25.7-33.7); MCHC 31.3 g/dl (32.0-36.0); MEAN CELL VOLUME 84.9 fl (80-96); PLATELET COUNT 430 10^3/uL (134-434); RBC 4.84 M/mm3 (3.60-5.2); RDW 14.5 % (11.6-15.6); WHITE BLOOD COUNT 11.6 K/mm3 (4.0-10.0)
[2024-10-04 09:48] LABS: POTASSIUM 4.4 mmol/L (3.5-5.1)
[2024-10-04 09:57] LABS: CALCIUM 8.9 mg/dL (8.5-10.1)
[2024-10-04 10:00] LABS: ALBUMIN 2.2 g/dl (3.4-5.0)
[2024-10-04 10:02] LABS: BILIRUBIN,TOTAL 0.6 mg/dL (0.2-1); TOT PROT 5.6 g/dl (6.4-8.2)
[2024-10-05] MEDS: guaiFENesin 600 MG TABLET.ER (FP) PO SCH (14:54)
[2024-10-06 09:36] LABS: BASO % 0.7 % (0-2.0); EOS % 1.7 % (0-4.5); HEMATOCRIT 42.6 % (32.4-45.2); HEMOGLOBIN 13.9 GM/dL (10.7-15.3); LYMPH % 6.4 % (8-40); MCH 27.3 pg (25.7-33.7); MCHC 32.7 g/dl (32.0-36.0); MEAN CELL VOLUME 83.3 fl (80-96); MEAN PLT VOLUME 7.8 fl (7.5-11.1); MONO % 4.6 % (3.8-10.2); NEUT % 86.6 % (42.8-82.8); PLATELET COUNT 526 10^3/uL (134-434); RBC 5.11 M/mm3 (3.60-5.2); RDW 14.8 % (11.6-15.6)
[2024-10-06 09:45] LABS: POTASSIUM 4.5 mmol/L (3.5-5.1)
[2024-10-06 09:56] LABS: BLOOD UREA NITROGEN 25.1 mg/dL (7-18); CALCIUM 9.3 mg/dL (8.5-10.1)
[2024-10-06 09:59] LABS: CREATININE 1.2 mg/dL (0.55-1.3)
[2024-10-06] MEDS: oxyCODONE HCL 5 MG TABLET PO PRN (18:48)
[2024-10-07 09:11] LABS: BASO % 0.7 % (0-2.0); EOS % 3.1 % (0-4.5); HEMATOCRIT 43.6 % (32.4-45.2); MCHC 32.2 g/dl (32.0-36.0); MEAN PLT VOLUME 7.8 fl (7.5-11.1); MONO % 6.1 % (3.8-10.2); NEUT % 83.1 % (42.8-82.8); PLATELET COUNT 498 10^3/uL (134-434); RDW 14.7 % (11.6-15.6); WHITE BLOOD COUNT 12.1 K/mm3 (4.0-10.0)
[2024-10-07 09:16] LABS: INR 1.08 (0.83-1.09); PROTHROMBIN TIME (PATIENT) 12.4 SEC (9.7-13.0)
[2024-10-07 09:27] LABS: POTASSIUM 4.7 mmol/L (3.5-5.1)
[2024-10-07 09:33] LABS: CALCIUM 9.3 mg/dL (8.5-10.1)
[2024-10-07 09:35] LABS: BLOOD UREA NITROGEN 24.6 mg/dL (7-18)
[2024-10-07 09:37] LABS: CREATININE 1.1 mg/dL (0.55-1.3)
[2024-10-07] MEDS ORDERED: METOCLOPRAMIDE HCL INJECTION 10 MG/2 ML VIAL ONE (12:34)
[2024-10-07] MEDS ORDERED: ALBUTEROL SO4 HFA INHALER IH ONE (12:34)
[2024-10-07] MEDS ORDERED: ONDANSETRON 4 MG/2 ML VIAL ONE (12:34)
[2024-10-07] MEDS ORDERED: GLYCOPYRROLATE 0.2 MG/1 ML VIAL ONE (12:34)
[2024-10-07] MEDS ORDERED: ROCURONIUM BROMIDE 50 MG/5 ML SYRINGE ONE (12:34)
[2024-10-07] MEDS ORDERED: DEXAMETHASONE SOD PHOSPHATE 4 MG/1 ML VIAL ONE (12:34)
[2024-10-07] MEDS ORDERED: MIDAZOLAM HCL 2 MG/2 ML SINGLE DOSE VIAL ONE (12:34)
[2024-10-07] MEDS ORDERED: LIDOCAINE HCL/PF 2% SDV 5ML VIAL ONE ×2 (12:34→12:37)
[2024-10-07] MEDS ORDERED: HEPARIN NA (PORCINE) 5,000 UNITS/ML 1ML VIAL ONE ×4 (12:36→17:55)
[2024-10-07] MEDS ORDERED: PROPOFOL 20 ML ONE (12:37)
[2024-10-07] MEDS ORDERED: SODIUM CHLORIDE 0.9% P/F 10 ML VIAL IJ ONE (12:38)
[2024-10-07] MEDS ORDERED: ceFAZolin SODIUM 1 GM VIAL ONE (12:38)
[2024-10-07] MEDS ORDERED: HYDROmorphone HCl 2 MG/ML VIAL ONE (12:39)
[2024-10-07] MEDS ORDERED: PAPAVERINE HCL 30 MG/1 ML 10 ML VIAL NR ONE ×2 (13:15→17:55)
[2024-10-07] MEDS ORDERED: BACITRACIN ZINC 15 GM TUBE TOPICAL OINTMENT ONE ×2 (13:15→20:28)
[2024-10-07] MEDS ORDERED: ONDANSETRON 4 MG/2 ML VIAL IVPUSH PRN ×3 (13:19→21:49)
[2024-10-07] MEDS ORDERED: LACTATED RINGERS SOLUTION 1,000 ML IV SCH ×2 (13:30→21:00)
[2024-10-07] MEDS ORDERED: ALBUTEROL SO4 2.5/IPRATROPIUM 0.5 INH SOL 3 ML VIAL.NEB. NEB ONE ×2 (14:07→16:08)
[2024-10-07] MEDS: ALBUTEROL SO4 2.5/IPRATROPIUM 0.5 INH SOL 3 ML VIAL.NEB. NEB ONE (14:10)
[2024-10-07] MEDS ORDERED: BUPIVACAINE HCL/PF 0.5% (5MG/ML) 10 ML VIAL ONE (14:38)
[2024-10-07] MEDS: ceFAZolin SODIUM 1 GM VIAL IVPB ONE (15:28)
[2024-10-07] MEDS: ACETAMINOPHEN 1000 MG/100 ML BAG IVPB ONE (21:10)
[2024-10-07] MEDS: FENTANYL/BUPIVACAINE/NS/PF - PCEA - 50 ML DISP.SYRIN EP SCH (21:21)
[2024-10-07] MEDS ORDERED: ACETAMINOPHEN 325 MG TABLET (FP) PO PRN (21:49)
[2024-10-07] MEDS: LACTATED RINGERS SOLUTION 1,000 ML IV SCH (22:15)
[2024-10-07 23:19] LABS: HEMATOCRIT 39.8 % (32.4-45.2); HEMOGLOBIN 12.4 GM/dL (10.7-15.3); LYMPH % 7.1 % (8-40); MCH 26.1 pg (25.7-33.7); MCHC 31.1 g/dl (32.0-36.0); MEAN CELL VOLUME 83.9 fl (80-96); MEAN PLT VOLUME 7.5 fl (7.5-11.1); MONO % 5.5 % (3.8-10.2); NEUT % 84.4 % (42.8-82.8); PLATELET COUNT 526 10^3/uL (134-434); RBC 4.74 M/mm3 (3.60-5.2); RDW 14.9 % (11.6-15.6); WHITE BLOOD COUNT 17.3 K/mm3 (4.0-10.0)
[2024-10-07 23:45] LABS: POTASSIUM 4.9 mmol/L (3.5-5.1)
[2024-10-07 23:48] LABS: ALBUMIN 2.3 g/dl (3.4-5.0); BLOOD UREA NITROGEN 26.4 mg/dL (7-18); CALCIUM 8.5 mg/dL (8.5-10.1); MAGNESIUM 1.5 mg/dL (1.8-2.4)
[2024-10-07 23:51] LABS: CREATININE 1.1 mg/dL (0.55-1.3); PHOSPHOROUS 5.1 mg/dL (2.5-4.9)
[2024-10-07 23:53] LABS: BILIRUBIN,TOTAL 0.3 mg/dL (0.2-1); TOT PROT 5.5 g/dl (6.4-8.2)
[2024-10-08] MEDS: HEPARIN NA (PORCINE) 5,000 UNITS/ML 1ML VIAL SQ SCH
[2024-10-08] MEDS: MAGNESIUM SULFATE IN WATER 2 GM/50 ML IVPB IVPB ONE (00:50)
[2024-10-08] MEDS: INSULIN ASPART SLIDING SCALE (NOVOLOG) 1 VIAL SQ SCH ×2 (01:12→22:37)
[2024-10-08] MEDS: guaiFENesin 600 MG TABLET.ER (FP) PO SCH ×2 (01:12→21:00)
[2024-10-08] MEDS: CALCIUM 500MG/VIT-D 200 UNITS COMBO TABLET (FP) PO SCH ×2 (01:12→21:00)
[2024-10-08] MEDS: CHLORHEXIDINE GLUCONATE 4% CLEANSER FOR DECOLONIZATION TP SCH ×2 (01:13→21:00)
[2024-10-08] MEDS: DOCUSATE SODIUM 100 MG CAPSULE (FP) PO SCH ×2 (01:13→20:59)
[2024-10-08] MEDS: MUPIROCIN 2% TOPICAL OINTMENT FOR DECOLONIZATION NS SCH ×2 (01:13→21:00)
[2024-10-08] MEDS: FENTANYL/BUPIVACAINE/NS/PF - PCEA - 50 ML DISP.SYRIN EP SCH (02:00)
[2024-10-08 06:44] LABS: BASO % 0.8 % (0-2.0); EOS % 1.3 % (0-4.5); HEMATOCRIT 38.1 % (32.4-45.2); HEMOGLOBIN 11.6 GM/dL (10.7-15.3); LYMPH % 2.9 % (8-40); MCHC 30.5 g/dl (32.0-36.0); MEAN CELL VOLUME 85.2 fl (80-96); MEAN PLT VOLUME 8.2 fl (7.5-11.1); MONO % 5.6 % (3.8-10.2); NEUT % 89.4 % (42.8-82.8); PLATELET COUNT 584 10^3/uL (134-434); RBC 4.48 M/mm3 (3.60-5.2); RDW 14.9 % (11.6-15.6); WHITE BLOOD COUNT 16.8 K/mm3 (4.0-10.0)
[2024-10-08 07:31] LABS: POTASSIUM 5.6 mmol/L (3.5-5.1)
[2024-10-08 07:35] LABS: CALCIUM 8.3 mg/dL (8.5-10.1)
[2024-10-08 07:36] LABS: ALBUMIN 2.3 g/dl (3.4-5.0); BLOOD UREA NITROGEN 27.4 mg/dL (7-18); MAGNESIUM 2.2 mg/dL (1.8-2.4)
[2024-10-08 07:39] LABS: CREATININE 1.2 mg/dL (0.55-1.3)
[2024-10-08 07:40] LABS: PHOSPHOROUS 5.3 mg/dL (2.5-4.9)
[2024-10-08 07:42] LABS: BILIRUBIN,TOTAL 0.3 mg/dL (0.2-1); TOT PROT 5.4 g/dl (6.4-8.2)
[2024-10-08] MEDS ORDERED: HEPARIN NA (PORCINE) 5,000 UNITS/ML 1ML VIAL IVPUSH PRN (08:26)
[2024-10-08 09:27] LABS: INR 1.08 (0.83-1.09); PROTHROMBIN TIME (PATIENT) 12.2 SEC (9.7-13.0)
[2024-10-08 09:30] LABS: ACTIVATED PTT 33.6 SECONDS (25.2-36.5)
[2024-10-08] MEDS: HEPARIN INFUSION - 25,000 UNITS/500 ML INFUS.BAG IVPB SCH ×2 (09:45→19:45)
[2024-10-08] MEDS: HEPARIN NA (PORCINE) 5,000 UNITS/ML 1ML VIAL IVPUSH PRN ×2 (09:49→20:58)
[2024-10-08] MEDS: HEPARIN NA (PORCINE) 5,000 UNITS/ML 1ML VIAL IVPUSH ONE (09:50)
[2024-10-08] MEDS: PRAMIPEXOLE DIHYDROCHLORIDE 0.125 MG TABLET PO SCH ×2 (09:52→20:59)
[2024-10-08] MEDS: CHOLECALCIFEROL (VIT D3) 1,000 UNIT (25 MCG) TABLET PO SCH (09:53)
[2024-10-08] MEDS: CALCITONIN - SALMON SYNTHETIC 200 UNITS/SPRAY NS SCH (09:53)
[2024-10-08] MEDS: GABAPENTIN 300 MG CAPSULE PO SCH (09:53)
[2024-10-08] MEDS: amLODIPine BESYLATE 10 MG TABLET (FP) PO SCH (09:53)
[2024-10-08] MEDS ORDERED: ACETAMINOPHEN 1000 MG/100 ML BAG IVPB PRN ×2 (10:54→11:31)
[2024-10-08] MEDS ORDERED: fentaNYL CITRATE/PF 1,000 MCG/20 ML AMPUL IVPUSH PRN (11:30)
[2024-10-08] MEDS ORDERED: fentaNYL CITRATE/PF 1,000 MCG/20 ML AMPUL IVPUSH SCH (11:30)
[2024-10-08] MEDS ORDERED: MIDAZOLAM HCL 2 MG/2 ML SINGLE DOSE VIAL ONE ×2 (12:23→18:57)
[2024-10-08] MEDS ORDERED: PRAMIPEXOLE DIHYDROCHLORIDE 0.125 MG TABLET PO SCH (12:29)
[2024-10-08] MEDS: ceFAZolin SODIUM 1 GM VIAL IVPB ONE (13:10)
[2024-10-08] MEDS ORDERED: ceFAZolin SODIUM 1 GM VIAL ONE (13:11)
[2024-10-08] MEDS ORDERED: DEXAMETHASONE SOD PHOSPHATE 4 MG/1 ML VIAL ONE (13:19)
[2024-10-08] MEDS ORDERED: ONDANSETRON 4 MG/2 ML VIAL ONE ×2 (13:19→16:06)
[2024-10-08] MEDS ORDERED: HEPARIN INFUSION - 25,000 UNITS/500 ML INFUS.BAG IVPB SCH (13:44)
[2024-10-08] MEDS ORDERED: KETAMINE HCL 200 MG/20 ML VIAL ONE (13:48)
[2024-10-08] MEDS ORDERED: PAPAVERINE HCL 30 MG/1 ML 10 ML VIAL NR ONE (13:50)
[2024-10-08] MEDS ORDERED: HEPARIN NA (PORCINE) 5,000 UNITS/ML 1ML VIAL ONE (14:14)
[2024-10-08] MEDS ORDERED: ROCURONIUM BROMIDE 50 MG/5 ML SYRINGE ONE ×2 (14:43→18:24)
[2024-10-08] MEDS ORDERED: PROPOFOL 20 ML ONE (15:21)
[2024-10-08] MEDS ORDERED: PHENYLEPHRINE HCL 10 MG/1 ML SINGLE DOSE VIAL ONE ×2 (15:39→22:24)
[2024-10-08] MEDS ORDERED: ALBUTEROL SO4 2.5/IPRATROPIUM 0.5 INH SOL 3 ML VIAL.NEB. NEB SCH (16:00)
[2024-10-08] MEDS ORDERED: HYDROmorphone HCl 2 MG/ML VIAL ONE (16:00)
[2024-10-08] MEDS ORDERED: NEOSTIGMINE METHYLSULFATE 0.5 MG/1 ML - 10 ML MDV ONE (16:08)
[2024-10-08] MEDS ORDERED: GLYCOPYRROLATE 0.2 MG/1 ML VIAL ONE (16:09)
[2024-10-08] MEDS ORDERED: morphine CARPU-JECT 2 MG/1 ML DISP.SYRIN IVPUSH PRN (16:58)
[2024-10-08] MEDS ORDERED: ALBUTEROL SO4 0.083% IH SOL 2.5 MG/3 ML VIAL.NEB. NEB ONE (17:01)
[2024-10-08] MEDS: ALBUTEROL SO4 0.083% IH SOL 2.5 MG/3 ML VIAL.NEB. NEB PRN (17:10)
[2024-10-08] MEDS ORDERED: ONDANSETRON 4 MG/2 ML VIAL IVPUSH PRN (17:12)
[2024-10-08 18:11] LABS: ARTERIAL BLD GAS O2 SATURATION 79.6 % (95-98); ARTERIAL BLOOD GAS BASE EXCESS -9.7 mmol/L (-2-2); ARTERIAL BLOOD GAS PO2 64.7 mmHg (80-100)
[2024-10-08 18:16] LABS: ARTERIAL BLOOD GAS pH 7.017 (7.350-7.450)
[2024-10-08] MEDS ORDERED: RAPID SEQUENCE INTUBATION KIT NR ONE (18:18)
[2024-10-08] MEDS ORDERED: ETOMIDATE 20 MG/10 ML VIAL IVPUSH ONE (18:24)
[2024-10-08] MEDS ORDERED: MIDAZOLAM HCL 2 MG/2 ML SINGLE DOSE VIAL IVPUSH PRN (18:49)
[2024-10-08] MEDS: LACTATED RINGERS SOLUTION 1,000 ML IV SCH (19:00)
[2024-10-08] MEDS ORDERED: FENTANYL IVPB 500 MCG/100 ML BAG IVPB SCH (20:00)
[2024-10-08] MEDS: ALBUTEROL SO4 2.5/IPRATROPIUM 0.5 INH SOL 3 ML VIAL.NEB. NEB SCH (20:05)
[2024-10-08] MEDS: BUDESONIDE 0.5 MG/2 ML INH SUSP VIAL NEB SCH (20:05)
[2024-10-08] MEDS: FENTANYL NS IVPB 500 MCG/100 ML BAG IVPB SCH (20:24)
[2024-10-08] MEDS: CAFFEINE CITRATE 60 MG/3 ML VIAL IVPUSH ONE (20:25)
[2024-10-08] MEDS: ACETAMINOPHEN 1000 MG/100 ML BAG IVPB ONE (20:26)
[2024-10-08 20:38] LABS: ARTERIAL BLOOD GAS BASE EXCESS -5.4 mmol/L (-2-2); ARTERIAL BLOOD GAS PO2 58.9 mmHg (80-100); ARTERIAL BLOOD GAS pH 7.204 (7.350-7.450); HEMATOCRIT 35.4 % (32.4-45.2); HEMOGLOBIN 10.9 GM/dL (10.7-15.3); MCH 26.8 pg (25.7-33.7); MCHC 30.9 g/dl (32.0-36.0); MEAN CELL VOLUME 86.6 fl (80-96); PLATELET COUNT 541 10^3/uL (134-434); RBC 4.08 M/mm3 (3.60-5.2); RDW 15.3 % (11.6-15.6); WHITE BLOOD COUNT 15.8 K/mm3 (4.0-10.0)
[2024-10-08 20:46] LABS: VENT MODE VC; VENT RATE 14
[2024-10-08] MEDS: ACETAMINOPHEN 1000 MG/100 ML BAG IVPB SCH (20:58)
[2024-10-08] MEDS: FAMOTIDINE 20 MG/50 ML IVPB 20 MG/50 ML MG IVPB SCH (21:00)
[2024-10-08 21:13] LABS: POTASSIUM 5.7 mmol/L (3.5-5.1)
[2024-10-08 21:14] LABS: CALCIUM 7.6 mg/dL (8.5-10.1)
[2024-10-08 21:15] LABS: BLOOD UREA NITROGEN 31.9 mg/dL (7-18); MAGNESIUM 2.1 mg/dL (1.8-2.4)
[2024-10-08 21:18] LABS: CREATININE 1.5 mg/dL (0.55-1.3); PHOSPHOROUS 6.1 mg/dL (2.5-4.9)
[2024-10-08] MEDS ORDERED: MUPIROCIN 2% TOPICAL OINTMENT FOR DECOLONIZATION NS SCH (22:00)
[2024-10-08] MEDS ORDERED: CHLORHEXIDINE GLUCONATE 4% CLEANSER FOR DECOLONIZATION TP SCH (22:00)
[2024-10-08] MEDS ORDERED: PHENYLEPHRINE NS PREMIX 50,000 MCG/500 ML BAG IVPB SCH (22:15)
[2024-10-08] MEDS: PHENYLEPHRINE NS PREMIX 50,000 MCG/500 ML BAG IVPB SCH (22:30)
[2024-10-08] MEDS: CEFAZOLIN 1 GM/D5W 1 GM/50 ML BAG IVPB SCH (22:36)
[2024-10-08] MEDS: PROPOFOL 1,000,000 MCG/100 ML VIAL IVPB SCH (23:13)
[2024-10-08] MEDS: FUROSEMIDE 40 MG/4 ML INJECTABLE VIAL IVPUSH ONE (23:14)
[2024-10-09 06:36] LABS: ARTERIAL BLOOD GAS BASE EXCESS 1.9 mmol/L (-2-2); ARTERIAL BLOOD GAS PO2 83.7 mmHg (80-100); ARTERIAL BLOOD GAS pH 7.383 (7.350-7.450)
[2024-10-09 06:44] LABS: VENT MODE VC-SIMV; VENT RATE 18
[2024-10-09 07:25] LABS: BASO % 0.6 % (0-2.0); EOS % 0.1 % (0-4.5); HEMATOCRIT 32.3 % (32.4-45.2); HEMOGLOBIN 9.9 GM/dL (10.7-15.3); LYMPH % 5.8 % (8-40); MCH 26.1 pg (25.7-33.7); MCHC 30.7 g/dl (32.0-36.0); MEAN CELL VOLUME 85.1 fl (80-96); MEAN PLT VOLUME 8.3 fl (7.5-11.1); MONO % 7.2 % (3.8-10.2); NEUT % 86.3 % (42.8-82.8); PLATELET COUNT 562 10^3/uL (134-434); RDW 14.9 % (11.6-15.6); WHITE BLOOD COUNT 15.9 K/mm3 (4.0-10.0)
[2024-10-09 07:38] LABS: CHLORIDE 102 mmol/L (98-107); POTASSIUM 5.1 mmol/L (3.5-5.1); SODIUM 137 mmol/L (136-145)
[2024-10-09 07:41] LABS: CALCIUM 7.1 mg/dL (8.5-10.1); GLUCOSE,RANDOM 78 mg/dL (74-106)
[2024-10-09 07:42] LABS: ANION GAP 6 mmol/L (4-13); BLOOD UREA NITROGEN 38.6 mg/dL (7-18); CO2 29 mmol/L (21-32)
[2024-10-09 07:43] LABS: MAGNESIUM 1.9 mg/dL (1.8-2.4)
[2024-10-09 07:44] LABS: PHOSPHOROUS 3.6 mg/dL (2.5-4.9)
[2024-10-09 07:45] LABS: SGOT/AST 20 U/L (15-37)
[2024-10-09 07:46] LABS: BILIRUBIN,TOTAL 0.4 mg/dL (0.2-1); CREATININE 1.8 mg/dL (0.55-1.3); TOT PROT 4.9 g/dl (6.4-8.2)
[2024-10-09 07:47] LABS: ALK PHOS 57 U/L (45-117)
[2024-10-09 07:53] LABS: SGPT/ALT < 6 U/L (13-61)
[2024-10-09] MEDS: GABAPENTIN 300 MG CAPSULE PO SCH (11:02)
[2024-10-09] MEDS: CHOLECALCIFEROL (VIT D3) 1,000 UNIT (25 MCG) TABLET PO SCH (11:02)
[2024-10-09] MEDS: amLODIPine BESYLATE 10 MG TABLET (FP) PO SCH (11:03)
[2024-10-09 13:24] VITALS: BMI 18.8
[2024-10-09] MEDS: methylPREDNISolone NA SUCC 40 MG/1 ML VIAL IVPUSH SCH (16:17)
[2024-10-09] MEDS: ACETAMINOPHEN 1000 MG/100 ML BAG IVPB SCH (16:18)
[2024-10-09] MEDS: CALCITONIN - SALMON SYNTHETIC 200 UNITS/SPRAY NS SCH (17:55)
[2024-10-09 21:16] LABS: INR 1.04 (0.83-1.09)
[2024-10-09 21:19] LABS: ACTIVATED PTT 37.7 SECONDS (25.2-36.5)
[2024-10-10] MEDS: ACETAMINOPHEN 1000 MG/100 ML BAG IVPB ONE (05:36)
[2024-10-10 07:32] LABS: HEMATOCRIT 34.7 % (32.4-45.2); HEMOGLOBIN 10.9 GM/dL (10.7-15.3); MCH 26.5 pg (25.7-33.7); MCHC 31.3 g/dl (32.0-36.0); MEAN CELL VOLUME 84.5 fl (80-96); MEAN PLT VOLUME 8.1 fl (7.5-11.1); PLATELET COUNT 584 10^3/uL (134-434); RBC 4.11 M/mm3 (3.60-5.2); WHITE BLOOD COUNT 16.5 K/mm3 (4.0-10.0)
[2024-10-10 07:57] LABS: CHLORIDE 100 mmol/L (98-107); POTASSIUM 5.1 mmol/L (3.5-5.1); SODIUM 136 mmol/L (136-145)
[2024-10-10 08:00] LABS: CALCIUM 7.4 mg/dL (8.5-10.1)
[2024-10-10 08:03] LABS: BLOOD UREA NITROGEN 38.7 mg/dL (7-18); GLUCOSE,RANDOM 154 mg/dL (74-106)
[2024-10-10 08:04] LABS: ANION GAP 6 mmol/L (4-13); CO2 30 mmol/L (21-32)
[2024-10-10 08:06] LABS: CREATININE 1.4 mg/dL (0.55-1.3); SGOT/AST 56 U/L (15-37)
[2024-10-10 08:07] LABS: PHOSPHOROUS 3.6 mg/dL (2.5-4.9); SGPT/ALT < 6 U/L (13-61)
[2024-10-10 08:08] LABS: BILIRUBIN,TOTAL 0.4 mg/dL (0.2-1); TOT PROT 5.4 g/dl (6.4-8.2)
[2024-10-10 08:09] LABS: ALK PHOS 66 U/L (45-117)
[2024-10-10] MEDS: HEPARIN NA (PORCINE) 5,000 UNITS/ML 1ML VIAL IVPUSH PRN (08:45)
[2024-10-10] MEDS: APIXABAN 2.5 MG TABLET PO SCH (21:25)
[2024-10-10] MEDS ORDERED: ALBUTEROL SO4 0.083% IH SOL 2.5 MG/3 ML VIAL.NEB. NEB PRN (21:54)
[2024-10-11] MEDS: MUPIROCIN 2% TOPICAL OINTMENT FOR DECOLONIZATION NS SCH (00:19)
[2024-10-11] MEDS: DOCUSATE SODIUM 100 MG CAPSULE (FP) PO SCH (00:20)
[2024-10-11] MEDS: PRAMIPEXOLE DIHYDROCHLORIDE 0.125 MG TABLET PO SCH (00:21)
[2024-10-11] MEDS: CHLORHEXIDINE GLUCONATE 4% CLEANSER FOR DECOLONIZATION TP SCH (00:21)
[2024-10-11] MEDS: INSULIN ASPART SLIDING SCALE (NOVOLOG) 1 VIAL SQ SCH (00:22)
[2024-10-11] MEDS: CALCIUM 500MG/VIT-D 200 UNITS COMBO TABLET (FP) PO SCH (00:22)
[2024-10-11] MEDS: guaiFENesin 600 MG TABLET.ER (FP) PO SCH (00:22)
[2024-10-11] MEDS: FAMOTIDINE 20 MG/50 ML IVPB 20 MG/50 ML MG IVPB SCH (00:23)
[2024-10-11 07:41] VITALS: RESP 18
[2024-10-11] MEDS: ALBUTEROL SO4 2.5/IPRATROPIUM 0.5 INH SOL 3 ML VIAL.NEB. NEB SCH (09:00)
[2024-10-11] MEDS: BUDESONIDE 0.5 MG/2 ML INH SUSP VIAL NEB SCH (09:01)
[2024-10-11 09:39] LABS: HEMATOCRIT 37.6 % (32.4-45.2); HEMOGLOBIN 11.5 GM/dL (10.7-15.3); MCHC 30.5 g/dl (32.0-36.0); MEAN CELL VOLUME 85.1 fl (80-96); MEAN PLT VOLUME 7.9 fl (7.5-11.1); PLATELET COUNT 623 10^3/uL (134-434); RBC 4.42 M/mm3 (3.60-5.2); RDW 15.3 % (11.6-15.6)
[2024-10-11] MEDS: ASPIRIN 81 MG CHEWABLE TABLETS PO SCH (10:23)
[2024-10-11] MEDS: GABAPENTIN 300 MG CAPSULE PO SCH (10:24)
[2024-10-11] MEDS: amLODIPine BESYLATE 10 MG TABLET (FP) PO SCH (10:24)
[2024-10-11] MEDS: CHOLECALCIFEROL (VIT D3) 1,000 UNIT (25 MCG) TABLET PO SCH (10:24)
[2024-10-11] MEDS: CALCITONIN - SALMON SYNTHETIC 200 UNITS/SPRAY NS SCH (10:25)
[2024-10-11] MEDS: methylPREDNISolone NA SUCC 40 MG/1 ML VIAL IVPUSH SCH (10:25)
[2024-10-12 10:24] LABS: HEMATOCRIT 39.8 % (32.4-45.2); HEMOGLOBIN 12.4 GM/dL (10.7-15.3); MCH 26.4 pg (25.7-33.7); MCHC 31.1 g/dl (32.0-36.0); MEAN CELL VOLUME 84.8 fl (80-96); MEAN PLT VOLUME 7.7 fl (7.5-11.1); PLATELET COUNT 685 10^3/uL (134-434); WHITE BLOOD COUNT 14.8 K/mm3 (4.0-10.0)
[2024-10-12] MEDS: oxyCODONE HCL 5 MG TABLET PO PRN (17:51)
[2024-10-13 09:11] LABS: BASO % 1.1 % (0-2.0); EOS % 1.1 % (0-4.5); HEMATOCRIT 40.7 % (32.4-45.2); HEMOGLOBIN 12.3 GM/dL (10.7-15.3); LYMPH % 12.7 % (8-40); MCH 25.7 pg (25.7-33.7); MCHC 30.4 g/dl (32.0-36.0); MEAN CELL VOLUME 84.5 fl (80-96); MEAN PLT VOLUME 7.8 fl (7.5-11.1); MONO % 8.1 % (3.8-10.2); PLATELET COUNT 879 10^3/uL (134-434); RBC 4.81 M/mm3 (3.60-5.2); WHITE BLOOD COUNT 13.8 K/mm3 (4.0-10.0)
[2024-10-13 09:42] LABS: POTASSIUM 4.8 mmol/L (3.5-5.1)
[2024-10-13 10:05] LABS: BLOOD UREA NITROGEN 32.4 mg/dL (7-18)
[2024-10-13 10:10] LABS: BILIRUBIN,TOTAL 0.5 mg/dL (0.2-1); CREATININE 1.3 mg/dL (0.55-1.3); TOT PROT 6.5 g/dl (6.4-8.2)
[2024-10-13 10:23] LABS: ALBUMIN 2.6 g/dl (3.4-5.0); CALCIUM 9.8 mg/dL (8.5-10.1)
[2024-10-14 09:35] LABS: BASO % 0.7 % (0-2.0); EOS % 1.8 % (0-4.5); HEMATOCRIT 38.3 % (32.4-45.2); HEMOGLOBIN 12.2 GM/dL (10.7-15.3); LYMPH % 12.6 % (8-40); MCH 26.7 pg (25.7-33.7); MCHC 31.8 g/dl (32.0-36.0); MEAN CELL VOLUME 83.7 fl (80-96); MONO % 7.7 % (3.8-10.2); NEUT % 77.2 % (42.8-82.8); PLATELET COUNT 945 10^3/uL (134-434); RBC 4.57 M/mm3 (3.60-5.2); RDW 14.9 % (11.6-15.6); WHITE BLOOD COUNT 12.7 K/mm3 (4.0-10.0)
[2024-10-14 09:54] LABS: POTASSIUM 5.1 mmol/L (3.5-5.1)
[2024-10-14 09:59] LABS: CALCIUM 9.1 mg/dL (8.5-10.1)
[2024-10-14 10:00] LABS: ALBUMIN 2.6 g/dl (3.4-5.0)
[2024-10-14 10:01] LABS: BILIRUBIN,TOTAL 0.4 mg/dL (0.2-1)
[2024-10-14 10:02] LABS: CREATININE 1.1 mg/dL (0.55-1.3)
[2024-10-14 10:04] LABS: TOT PROT 6.2 g/dl (6.4-8.2)
[2024-10-14] MEDS: FLUTICASONE PROP 0.05% 16 GM NASAL SPRAY NS SCH (12:51)
[2024-10-15] MEDS ORDERED: SENNOSIDES 8.6MG TABLET (FP) PO PRN (15:21)
[2024-10-15] MEDS: oxyCODONE HCL 5 MG TABLET PO PRN (17:31)
[2024-10-15] MEDS: POLYETHYLENE GLYCOL (HEALTHYLAX) 3350 17 GM PACKET PO SCH (22:25)
[2024-10-16 21:23] VITALS: BP 119/61; PULSE 64; TEMP 97.5
== END 2024-10-17 01:00 | DRG 480 ==
LOC: JER 23:38 → JERBED 09-30 02:09 → J6S 09-30 14:57 → JICU 10-07 22:33 → J5S 10-11 00:27
PROVIDERS: ADMIT Internal Medicine; ATTEND Family Medicine
PROC: 0QS706Z Reposition Left Upper Femur with Intramedullary Internal Fixation Device, Open Approach (ICD-10-PCS; principal; 2024-09-30 18:00)
PROC: 047 Lower Arteries, Dilation (ICD-10-PCS; 2024-10-07)
PROC: 047K0ZZ Dilation of Right Femoral Artery, Open Approach (ICD-10-PCS; 2024-10-07)
PROC: 041K09M Bypass Right Femoral Artery to Peroneal Artery with Autologous Venous Tissue, Open Approach (ICD-10-PCS; 2024-10-07)
PROC: 06BP0ZZ Excision of Right Saphenous Vein, Open Approach (ICD-10-PCS; 2024-10-07)
PROC: B40FYZZ Plain Radiography of Right Lower Extremity Arteries using Other Contrast (ICD-10-PCS; 2024-10-07)
PROC: 04WY0JZ Revision of Synthetic Substitute in Lower Artery, Open Approach (ICD-10-PCS; 2024-10-08)
PROC: 047 Lower Arteries, Dilation (ICD-10-PCS; 2024-10-08)
PROC: B40FYZZ Plain Radiography of Right Lower Extremity Arteries using Other Contrast (ICD-10-PCS; 2024-10-08)
DX: S72.112A Displaced fracture of greater trochanter of left femur, initial encounter for closed fracture (principal); J96.01 Acute respiratory failure with hypoxia; J96.02 Acute respiratory failure with hypercapnia; N17.9 Acute kidney failure, unspecified; J98.11 Atelectasis; E87.1 Hypo-osmolality and hyponatremia; E87.20 Acidosis, unspecified; E11.52 Type 2 diabetes mellitus with diabetic peripheral angiopathy with gangrene; I70.262 Atherosclerosis of native arteries of extremities with gangrene, left leg; J44.1 Chronic obstructive pulmonary disease with (acute) exacerbation; E87.5 Hyperkalemia; R80.9 Proteinuria, unspecified; S72.092A Other fracture of head and neck of left femur, initial encounter for closed fracture; G43.909 Migraine, unspecified, not intractable, without status migrainosus; I12.9 Hypertensive chronic kidney disease with stage 1 through stage 4 chronic kidney disease, or unspecified chronic kidney disease; E11.22 Type 2 diabetes mellitus with diabetic chronic kidney disease; N18.9 Chronic kidney disease, unspecified; G25.81 Restless legs syndrome; D75.1 Secondary polycythemia; B35.1 Tinea unguium; H35.30 Unspecified macular degeneration; W01.0XXA Fall on same level from slipping, tripping and stumbling without subsequent striking against object, initial encounter; Y93.9 Activity, unspecified; Y92.128 Other place in nursing home as the place of occurrence of the external cause; Y99.9 Unspecified external cause status; Z99.81 Dependence on supplemental oxygen; Z79.1 Long term (current) use of non-steroidal anti-inflammatories (NSAID)
CPT/HCPCS: 0241U-QW; 36415; 36600; 71045-TC-FY; 73502-TC-LT-FY; 73552-TC-LT-FY; 73562-TC-LT-FY; 74230-TC-FY; 76000-TC-FY; 76775-TC; 80048; 80053; 82803; 82962; 83605; 83735; 84100; 85025; 85027; 85610; 85730; 86922; 87481; 92611-GN; 93005; 93010; 94002; 94010; 94640; 94660; 94760; 97116-GP; 97162-GP; 99285-25; C1713; J0131; J1644

== ENCOUNTER 2025-06-04 16:58 | Inpatient (IN) | payer OTHER, MEDICARE ==
[2025-06-04 18:18] LABS: ABSOLUTE IMMATURE GRANULOCYTES 0.07 x10^3/uL (0.0-0.031); BASOPHILS # 0.09 x10^3/uL (0.01-0.08); EOSINOPHIL % 1.0 % (0.7-5.8); EOSINOPHILS # 0.12 x10^3/uL (0.04-0.36); MCHC 28.8 g/dl (32.2-35.5); MEAN CELL VOLUME 92.6 fl (79.4-94.8); MEAN PLT VOLUME 10.0 fl (9.4-12.3); MONOCYTE # 0.95 x10^3/uL (0.24-0.86); MONOCYTE % 7.8 % (4.7-12.5); RDW 15.2 % (12.5-17.0)
[2025-06-04 18:25] LABS: INR 1.06 (0.83-1.09); PROTHROMBIN TIME (PATIENT) 11.6 SEC (9.7-13.0)
[2025-06-04 18:27] LABS: ACTIVATED PTT 29.3 SECONDS (25.2-36.5)
[2025-06-04 18:31] LABS: GLUCOSE,RANDOM 112.0 mg/dL (74-106); TOT PROT 7.1 g/dl (6.4-8.2)
[2025-06-04 18:32] LABS: CO2 31.0 mmol/L (21-32)
[2025-06-04 18:34] LABS: ALK PHOS 88.0 U/L (40-150)
[2025-06-04 18:37] LABS: CREATININE 1.74 mg/dL (0.55-1.3); SGOT/AST 31.0 U/L (5-34); SGPT/ALT 35.0 U/L (0-55)
[2025-06-04 18:45] LABS: EPI CELLS 16 /uL (0-25.1); HYALINE CASTS 1 /uL (0-3.1); URINE APPEARANCE CLEAR; URINE BACTERIA 31 /uL (0-1359); URINE BILIRUBIN NEGATIVE (NEGATIVE); URINE COLOR YELLOW; URINE GLUCOSE (UA) NEGATIVE (NEGATIVE); URINE KETONE NEGATIVE (NEGATIVE); URINE LEUK ESTERASE 1+ (NEGATIVE); URINE NITRITE NEGATIVE (NEGATIVE); URINE PROTEIN 3+ (NEGATIVE); URINE RBC 24 /uL (0-23.9); URINE UROBILINOGEN 0.2 mg/dL (0.2-1.0); URINE WBC 149 /uL (0-25.8)
[2025-06-04 18:58] LABS: HIV INTERPRETATION NEGATIVE (NEGATIVE)
[2025-06-04 18:59] LABS: HCV DIAGNOSTIC IN-HOUSE W/RFLX NON-REACTIVE (NONREACTIVE)
[2025-06-04] MEDS: SODIUM CHLORIDE 0.9% 500 ML INFUS.BAG IV ONE (20:10)
[2025-06-04] MEDS ORDERED: SODIUM ZIRCONIUM CYCLOSILICATE (LOKELMA) 10 GM PACKET ONE (20:12)
[2025-06-04] MEDS ORDERED: ASPIRIN 81 MG CHEWABLE TABLETS ONE (20:12)
[2025-06-04] MEDS ORDERED: PIPERACILLIN/TAZOB 3.375 GM 3.375 GM/50 ML BAG IVPB ONE (20:13)
[2025-06-04] MEDS: SODIUM ZIRCONIUM CYCLOSILICATE (LOKELMA) 5 GM PACKET PO ONE (20:36)
[2025-06-04] MEDS: ASPIRIN 81 MG CHEWABLE TABLETS PO ONE (20:36)
[2025-06-04] MEDS: PIPERACILLIN/TAZOB 3.375 GM 3.375 GM in DEXTROSE 5%-WATER - 50 ML IVPB ONE (20:36)
[2025-06-04] MEDS ORDERED: VANCOMYCIN 1 GM PREMIX (F) 1 GM/200 ML BAG ONE (21:38)
[2025-06-04] MEDS: VANCOMYCIN 1,000 MG in DEXTROSE 5%-WATER - 250 ML IVPB ONE (22:00)
[2025-06-04] MEDS: SODIUM CHLORIDE 500 ML IV STA (22:40)
[2025-06-05 08:54] LABS: ABSOLUTE IMMATURE GRANULOCYTES 0.04 x10^3/uL (0.0-0.031); BASOPHILS # 0.09 x10^3/uL (0.01-0.08); EOSINOPHIL % 2.3 % (0.7-5.8); EOSINOPHILS # 0.21 x10^3/uL (0.04-0.36); MCHC 28.2 g/dl (32.2-35.5); MEAN CELL VOLUME 94.7 fl (79.4-94.8); MEAN PLT VOLUME 9.9 fl (9.4-12.3); MONOCYTE # 0.74 x10^3/uL (0.24-0.86); MONOCYTE % 8.0 % (4.7-12.5); RDW 15.5 % (12.5-17.0)
[2025-06-05 09:24] LABS: GLUCOSE,RANDOM 89.0 mg/dL (74-106)
[2025-06-05 09:25] LABS: CO2 31.0 mmol/L (21-32)
[2025-06-05 09:30] LABS: CREATININE 1.66 mg/dL (0.55-1.3); LDL CHOLESTEROL (ONLY SJRH) 67.0 mg/dL (5-100)
[2025-06-05] MEDS: CEFTRIAXONE 1 GM in DEXTROSE 5%-WATER - 50 ML IVPB SCH (10:40)
[2025-06-05] MEDS: AZITHROMYCIN IVPB 500 MG/250 ML BAG IVPB SCH (10:40)
[2025-06-05] MEDS: amLODIPine BESYLATE 10 MG TABLET (FP) PO SCH (10:40)
[2025-06-05] MEDS: ALBUTEROL SO4 2.5/IPRATROPIUM 0.5 INH SOL 3 ML VIAL.NEB. NEB PRN (11:50)
[2025-06-05 15:32] VITALS: BMI 17.7
[2025-06-05] MEDS: GABAPENTIN 300 MG CAPSULE PO SCH (22:25)
[2025-06-07 08:45] LABS: ABSOLUTE IMMATURE GRANULOCYTES 0.06 x10^3/uL (0.0-0.031); BASOPHILS # 0.06 x10^3/uL (0.01-0.08); EOSINOPHIL % 1.6 % (0.7-5.8); EOSINOPHILS # 0.17 x10^3/uL (0.04-0.36); MCHC 28.1 g/dl (32.2-35.5); MEAN CELL VOLUME 94.3 fl (79.4-94.8); MEAN PLT VOLUME 10.2 fl (9.4-12.3); MONOCYTE # 0.69 x10^3/uL (0.24-0.86); MONOCYTE % 6.4 % (4.7-12.5); RDW 15.1 % (12.5-17.0)
[2025-06-07 09:19] LABS: GLUCOSE,RANDOM 105.0 mg/dL (74-106)
[2025-06-07 09:20] LABS: TOT PROT 6.2 g/dl (6.4-8.2)
[2025-06-07 09:21] LABS: CO2 27.0 mmol/L (21-32)
[2025-06-07 09:22] LABS: ALK PHOS 68.0 U/L (40-150)
[2025-06-07 09:25] LABS: CREATININE 1.39 mg/dL (0.55-1.3); SGOT/AST 14.0 U/L (5-34); SGPT/ALT 17.0 U/L (0-55)
[2025-06-07] MEDS: AMINO ACIDS/PROTEIN HYDROLYS 30 ML LIQUID.PKT PO SCH (13:54)
[2025-06-08] MEDS: ALBUTEROL SO4 2.5/IPRATROPIUM 0.5 INH SOL 3 ML VIAL.NEB. NEB SCH ×2 (13:44→16:04)
[2025-06-08] MEDS: methylPREDNISolone NA SUCC 40 MG/1 ML VIAL IVPUSH SCH (14:30)
[2025-06-08] MEDS: FUROSEMIDE 40 MG/4 ML INJECTABLE VIAL IVPUSH ONE (16:02)
[2025-06-08 16:25] LABS: GLUCOSE,RANDOM 120.0 mg/dL (74-106); TOT PROT 6.9 g/dl (6.4-8.2)
[2025-06-08 16:26] LABS: CO2 28.0 mmol/L (21-32)
[2025-06-08 16:28] LABS: ALK PHOS 78.0 U/L (40-150)
[2025-06-08 16:30] LABS: SGPT/ALT 15.0 U/L (0-55)
[2025-06-08 16:31] LABS: SGOT/AST 15.0 U/L (5-34)
[2025-06-08 16:34] LABS: ABSOLUTE IMMATURE GRANULOCYTES 0.12 x10^3/uL (0.0-0.031); BASOPHILS # 0.07 x10^3/uL (0.01-0.08); EOSINOPHIL % 0.6 % (0.7-5.8); EOSINOPHILS # 0.06 x10^3/uL (0.04-0.36); IMMATURE PLATELET FRACTION # 19.80 x10^3/uL; MCHC 27.3 g/dl (32.2-35.5); MEAN CELL VOLUME 95.9 fl (79.4-94.8); MEAN PLT VOLUME 10.8 fl (9.4-12.3); MONOCYTE # 0.61 x10^3/uL (0.24-0.86); MONOCYTE % 5.6 % (4.7-12.5); RDW 15.1 % (12.5-17.0)
[2025-06-08 16:50] LABS: CREATININE 1.89 mg/dL (0.55-1.3)
[2025-06-08] MEDS: PIPERACILLIN/TAZOB 3.375 GM 3.375 GM in DEXTROSE 5%-WATER - 50 ML IVPB SCH (17:07)
[2025-06-08] MEDS: ACETAMINOPHEN 500 MG TABLET (FP) PO PRN (18:08)
[2025-06-09 08:15] LABS: MCHC 28.0 g/dl (32.2-35.5); MEAN CELL VOLUME 93.6 fl (79.4-94.8); MEAN PLT VOLUME 10.2 fl (9.4-12.3); RDW 14.7 % (12.5-17.0)
[2025-06-09 08:42] LABS: GLUCOSE,RANDOM 188.0 mg/dL (74-106)
[2025-06-09 08:43] LABS: TOT PROT 6.4 g/dl (6.4-8.2)
[2025-06-09 08:44] LABS: CO2 27.0 mmol/L (21-32)
[2025-06-09 08:46] LABS: ALK PHOS 69.0 U/L (40-150)
[2025-06-09 08:48] LABS: SGOT/AST 11.0 U/L (5-34); SGPT/ALT 12.0 U/L (0-55)
[2025-06-09 08:49] LABS: CREATININE 1.74 mg/dL (0.55-1.3)
[2025-06-10] MEDS: PIPERACILLIN/TAZOB 3.375 GM 3.375 GM in DEXTROSE 5%-WATER - 50 ML IVPB SCH ×2 (01:09→20:53)
[2025-06-11 06:54] VITALS: RESP 16
[2025-06-11 13:24] VITALS: BP 159/77; PULSE 70; TEMP 98.2
== END 2025-06-11 14:26 | DRG 189 ==
LOC: JER 16:58 → JERBED 19:48 → J4S 06-05 00:26
PROVIDERS: ADMIT Family Medicine; ATTEND Family Medicine
DX: J96.21 Acute and chronic respiratory failure with hypoxia (principal); J18.9 Pneumonia, unspecified organism; G93.41 Metabolic encephalopathy; J44.0 Chronic obstructive pulmonary disease with (acute) lower respiratory infection; I24.89 Other forms of acute ischemic heart disease; R64 Cachexia; Z68.1 Body mass index [BMI] 19.9 or less, adult; J44.9 Chronic obstructive pulmonary disease, unspecified; R41.82 Altered mental status, unspecified; E11.51 Type 2 diabetes mellitus with diabetic peripheral angiopathy without gangrene; E11.22 Type 2 diabetes mellitus with diabetic chronic kidney disease; G43.909 Migraine, unspecified, not intractable, without status migrainosus; F17.210 Nicotine dependence, cigarettes, uncomplicated; I12.9 Hypertensive chronic kidney disease with stage 1 through stage 4 chronic kidney disease, or unspecified chronic kidney disease; N18.9 Chronic kidney disease, unspecified; H35.30 Unspecified macular degeneration; Z89.511 Acquired absence of right leg below knee; Z99.81 Dependence on supplemental oxygen
CPT/HCPCS: 36415; 70450-TC; 71045-TC-FY; 80048; 80053; 80061; 81003; 82607; 82746; 82962; 83735; 84100; 84311; 84443; 84484; 85025; 85027; 85610; 85730; 86803; 87040; 87086; 87389; 87637-QW; 87899; 93005; 93010; 94640; 94660; 97116-GP; 97161-GP; 99285-25; E0186